=== PATIENT | male | born 2005 | race Caucasian/White ===

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

== ENCOUNTER 2023-05-31 15:55 | Emergency (ER) | payer BC, SELFPAY ==
--- NOTE | ~2023-05-31 | XR_ITS ---
EXAMINATION: XR CHEST CLINICAL INFORMATION: Fall while skiing, pain with inspiration COMPARISON: None available. TECHNIQUE: 2 views of the chest were obtained. FINDINGS: No significant abnormality is noted involving the heart, lungs, mediastinum or soft tissues. S-shaped thoracolumbar scoliosis is noted. XR/XR chest 2V IMPRESSION: No acute cardiopulmonary disease.
--- NOTE | ~2023-05-31 | XR_ITS ---
EXAMINATION: XR THORACIC SPINE CLINICAL INFORMATION: Fall COMPARISON: None available. TECHNIQUE: 3 views of the thoracic spine were obtained. FINDINGS: There is a thoracolumbar scoliosis convex to the right with apex at T5-T6 and convex to the left with apex at T11-T12. Bone alignment is otherwise normal. No fracture or dislocation. Disc spaces. Normal paraspinal soft tissues. XR/XR thoracic spine 3V IMPRESSION: Thoracolumbar scoliosis. No fracture seen.
--- NOTE | ~2023-05-31 | CT_ITS ---
EXAMINATION: CT HEAD WITHOUT CONTRAST, CT CERVICAL SPINE WITHOUT CONTRAST CLINICAL INFORMATION: Fall. Loss of consciousness. Midline neck tenderness COMPARISON: None. TECHNIQUE: Multidetector CT examination of the head is performed without contrast. Multidetector CT of the cervical spine without contrast. Multiplanar postprocessing This CT examination was performed using dose optimization techniques as appropriate, variously including the following: *Automated exposure control *Adjustment of mA and/or kV according to patient size (this includes techniques or standardized protocols for targeted exams where dose is matched to indication/reason for exam; i.e. extremities or head) *Use of iterative reconstruction technique DLP: 983 mGy-cm FINDINGS: Head CT: There is no evidence of a recent intracranial hemorrhage or extra-axial collection. The midline structures are nondisplaced. The ventricles, cisterns, and sulci are within normal limits. There is no evidence of an intra-axial mass. There are no suspicious focal areas of abnormal brain attenuation. The carlos-white interface is within normal limits. There is no evidence of acute territorial infarct. The paranasal sinuses and mastoids are within normal limits. No fracture or fluid level demonstrated Cervical CT: No fracture or subluxation. There is some straightening of the expected cervical lordosis. No focal lesion or loss of volume. No significant disc narrowing No suspicious abnormality in the visualized apex of the chest CT/CT head/brain wo IV con IMPRESSION: 1. There is no evidence of a recent intracranial hemorrhage. 2. No acute infarct. 3. No acute fracture or subluxation of the cervical spine
--- NOTE | ~2023-05-31 | CT_ITS ---
EXAMINATION: CT HEAD WITHOUT CONTRAST, CT CERVICAL SPINE WITHOUT CONTRAST CLINICAL INFORMATION: Fall. Loss of consciousness. Midline neck tenderness COMPARISON: None. TECHNIQUE: Multidetector CT examination of the head is performed without contrast. Multidetector CT of the cervical spine without contrast. Multiplanar postprocessing This CT examination was performed using dose optimization techniques as appropriate, variously including the following: *Automated exposure control *Adjustment of mA and/or kV according to patient size (this includes techniques or standardized protocols for targeted exams where dose is matched to indication/reason for exam; i.e. extremities or head) *Use of iterative reconstruction technique DLP: 983 mGy-cm FINDINGS: Head CT: There is no evidence of a recent intracranial hemorrhage or extra-axial collection. The midline structures are nondisplaced. The ventricles, cisterns, and sulci are within normal limits. There is no evidence of an intra-axial mass. There are no suspicious focal areas of abnormal brain attenuation. The carlos-white interface is within normal limits. There is no evidence of acute territorial infarct. The paranasal sinuses and mastoids are within normal limits. No fracture or fluid level demonstrated Cervical CT: No fracture or subluxation. There is some straightening of the expected cervical lordosis. No focal lesion or loss of volume. No significant disc narrowing No suspicious abnormality in the visualized apex of the chest CT/CT cervical spine wo IV con IMPRESSION: 1. There is no evidence of a recent intracranial hemorrhage. 2. No acute infarct. 3. No acute fracture or subluxation of the cervical spine
[2023-05-31 16:01] VITALS: BP 130/71; PULSE 70; RESP 16; TEMP 36.1; O2SAT 97; BMI 22.1
--- NOTE | 2023-05-31 16:01 | ED.GENADULT ---
HPI - General Adult General Chief complaint: Fall Stated complaint: loss conscience diff breathing Time Seen by Provider: 05/31/23 19:02 Source: patient and family (mother) Mode of arrival: ambulatory Limitations: no limitations History of Present Illness HPI narrative: Patient is a 17-year-old male presenting to the ED with complaint of neck and upper back pain as well as pain with inspiration after a fall with loss of consciousness while skiing around 11am today. Does not recall how fall occurred, was helmeted. Believes he hit a jump and fell during the landing. Patient states he unsure length of LOC but feels it was just a few seconds. States he was awake by the time his friend who was skiing behind him arrived at his side. States he was able to ski down the rest of the trail to the bottom. Denies headache, blurred vision, double vision or other vision changes, nausea or vomiting. MD complaint: fall, loss of consciousness Onset (ago): hour(s) Location: neck and back Radiation: non-radiation Severity: moderate Quality: aching Pain Consistency: colicky Relieving factors: none Exacerbating factors: movement Associated symptoms: denies other symptoms Treatments prior to arrival: none Related Data Previous Rx's Medication Instructions Recorded azithromycin 250 mg tablet See Rx Instructions PO .COMPLEX #6 02/01/22 tabs cyclobenzaprine 5 mg tablet 5 mg PO TID PRN muscle spasm #10 05/31/23 tabs lidocaine 5 % topical patch 1 patch topical DAILY #15 ea 05/31/23 Allergies Allergy/AdvReac Type Severity Reaction Status Date / Time No Known Allergies Allergy Verified 02/01/22 08:40 [No Known Allergies*] Review of Systems Review of Systems: As per HPI. Yes all other systems are reviewed and are negative Constitutional: Constitutional: Reports as per HPI [facility] [place] Social History Social History Patient Tobacco Use Status: Never used Tobacco Current occupational status: employed and student Current occupation: rt hand /server systems administrator Physical Exam ED Vital Signs: Vital Signs - 24 hr 05/31/23 16:01 05/31/23 19:55 Temperature 96.9 F 97.7 F Pulse Rate 70 65 Respiratory Rate 16 18 Blood Pressure 130/71 124/43 L Pulse Oximetry 97 98 Oxygen Delivery Method Room Air Room Air BMI result Body Mass Index 22.1 Vital signs have been reviewed and appear to be correct. Blood pressure normal. Heart rate normal. Respiratory rate normal. Temperature normal. Oxygen saturation normal. Const General: cooperative, healthy appearing and no acute distress Orientation/consciousness: oriented to person, oriented to place, oriented to time and patient oriented x3 Limitations: no limitations [facility] Head: Yes normocephalic and Yes atraumatic Ears: external ears normal General nose exam: Normal external nose present Face and sinus: Yes face symmetric Mouth: oropharynx normal and moist mucous membranes Throat: Yes uvula midline Eyes Pupils: Equal, round and reactive pupils present Neck Neck: Yes normal visual inspection, Yes no meningeal signs and Yes supple Resp Effort & Inspection: normal respiratory effort and able to speak in complete sentences Auscultation: clear to auscultation bilaterally Cardio Rate: regular rate Rhythm: regular rhythm Heart sounds: S1 normal heart sound present and S2 normal heart sound present GI Palpation (GI): Soft to palpation and nontender Auscultation: normoactive bowel sounds General: Yes no CVA tenderness Back/Spine/Pelvis Back: no CVA tenderness Cervical Spine: normal cervical lordosis, cervical ROM normal, cervical muscular tenderness (bilateral ), No Cervical spine tenderness and No step off deformity Thoracic/Lumbar Spine: thoracic and lumbar spine normal to inspection, thoraco-lumbar ROM normal, straight leg raise negative bilaterally, pain with thoraco-lumbar ROM, paraspinal muscle tenderness bilaterally in the upper thoracic and in the mid thoracic, thoracic spinal tenderness at T4 and at T5 and No lumbar spinal tenderness Pelvis: no pain with anterior-posterior compression and no pain with lateral compression Skin General skin exam: elasticity normal and turgor normal Neuro General: oriented to person, oriented to place, oriented to time, patient oriented x3, gait normal, tone normal, moves all extremities, Normal light touch and pain sensation, no meningeal signs, no focal motor deficits, CN's II-XI intact bilaterally and deep tendon reflexes 2+ bilaterally Cranial nerves: Yes Equal, round and reactive pupils present Cognition (Neuro): normal cognition Motor exam (neuro): 5/5 motor strength present throughout, Pronator motor function not present, Normal motor muscle tone present throughout and Motor abnormalities not present Sensory Exam: Normal double simultaneous stimulation for sensation Extrem General: Yes full ROM, Yes no pedal edema and Yes no calf tenderness Psych Mental Status: mental status grossly normal Affect: normal affect Thought process: Normal thought process present Medical Decision Making Medical Decision Making MDM Narrative: Patient is a 17-year-old male presenting to the ED with complaint of neck and upper back pain as well as pain with inspiration after a fall with loss of consciousness while skiing around 11am today. On exam patient is awake, A+Ox3, VS WNL, afebrile, normal neurological exam without focal deficits, physical exam findings as above. Given reported symptoms and physical exam findings, initial differential includes ICH, skull fracture, cervical or thoracic vertebral fracture, subluxation, rib fracture, pneumothorax, muscle strain, contusion, concussion. X-ray/CT notable for No ICH, skull fracture, cervical or thoracic vertebral fracture or subluxation, no pneumothorax. My interpretation is in agreement with the radiologist's interpretation. All results discussed with patient and mother. Patient lives with mother and she reports that she will be able to observe patient for any changes. Strict return precautions discussed with patient and mother. Instructed patient to follow up with PCP. Patient and mother verbalized understanding of and agreement with plan. Differential Diagnosis Differential Diagnoses: The differential diagnosis associated with the presentation includes As per MDM. Admission/Observation Consideration of admission/observation: Escalation of care including admission/observation considered Independent Interpretation I performed an independent interpretation of an: Plain X-Ray and CT Scan Interpretation: No ICH, skull fracture, cervical or thoracic vertebral fracture or subluxation, no pneumothorax Radiology Impression Discussion of test interpretation with radiology: I have reviewed the radiologist's reading. Radiologist Impression: Head CT: There is no evidence of a recent intracranial hemorrhage or extra-axial collection. The midline structures are nondisplaced. The ventricles, cisterns, and sulci are within normal limits. There is no evidence of an intra-axial mass. There are no suspicious focal areas of abnormal brain attenuation. The carlos-white interface is within normal limits. There is no evidence of acute territorial infarct. The paranasal sinuses and mastoids are within normal limits. No fracture or fluid level demonstrated Cervical CT: No fracture or subluxation. There is some straightening of the expected cervical lordosis. No focal lesion or loss of volume. No significant disc narrowing No suspicious abnormality in the visualized apex of the chest CT/CT head/brain wo IV con IMPRESSION: 1. There is no evidence of a recent intracranial hemorrhage. 2. No acute infarct. 3. No acute fracture or subluxation of the cervical spine FINDINGS: No significant abnormality is noted involving the heart, lungs, mediastinum or soft tissues. S-shaped thoracolumbar scoliosis is noted. XR/XR chest 2V IMPRESSION: No acute cardiopulmonary disease. FINDINGS: There is a thoracolumbar scoliosis convex to the right with apex at T5-T6 and convex to the left with apex at T11-T12. Bone alignment is otherwise normal. No fracture or dislocation. Disc spaces. Normal paraspinal soft tissues. XR/XR thoracic spine 3V IMPRESSION: Thoracolumbar scoliosis. No fracture seen. Independent Historian Clinical information obtained from an independent historian. History obtained from or confirmed by: Parent (mother) External Record Review External record reviewed: Inpatient record, Office record and Outpatient record Prescription Management I considered prescription management with: Pain Medication and Other Discharge Plan Discharge Clinical Impression: Head injury, acute, with loss of consciousness, Cervical muscle strain, Muscle strain of upper back Patient Disposition: Home, Self-Care Instructions: Concussion (ED), Sports Concussion (ED) Additional Instructions: You have been evaluated in the emergency department today for head injury. Your CT scan did not show signs of bleed or fractures in your head. We recommend you take 600 mg ibuprofen every 6 hours or Tylenol 650 mg every 6 hours as needed for pain. If needed, you can alternate these medications so that you take 1 medication every 3 hours. For instance, at noon take ibuprofen, then at 3:00 p.m. take Tylenol, then at 6:00 p.m. take ibuprofen. You are being prescribed a muscle relaxer which you can take every 8 hours as needed for muscle spasms. You are being prescribed topical lidocaine patches which you can apply for up to 12 hours in a 24 hour period. Do not apply heat directly over the patches. Please schedule an appointment with for follow-up with your primary care provider as soon as possible. Return to the emergency department if you experience worsening or uncontrolled pain/headaches, especially sudden onset headache or worst headache of your life, vision changes, recurrent vomiting, difficulty with normal activities, abnormal behavior, difficulty walking, excessive drowsiness, new numbness, weakness, tingling or any other concerning symptoms. Prescriptions: New cyclobenzaprine 5 mg tablet 5 mg PO TID PRN (Reason: muscle spasm) Qty: 10 0RF lidocaine 5 % adhesive patch,medicated 1 patch topical DAILY Qty: 15 0RF Rx Instructions: leave on most painful area for up to 12 hrs No Action azithromycin 250 mg tablet See Rx Instructions PO .COMPLEX Qty: 6 0RF Rx Instructions: take 500 mg today (day 1), then 250 mg for 4 days (days 2-5) PO
[2023-05-31 19:55] VITALS: BP 124/43; PULSE 65; RESP 18; TEMP 36.5; O2SAT 98
== END 2023-05-31 20:19 | disposition home or self-care (01) ==
LOC: HO.ED 20:15
PROVIDERS: Emergency Provider Emergency Medicine Emergency Medical Services; PCP Pediatrics
DX: S06.0XAA Concussion with loss of consciousness status unknown, initial encounter (principal); S16.1XXA Strain of muscle, fascia and tendon at neck level, initial encounter; S29.012A Strain of muscle and tendon of back wall of thorax, initial encounter; W17.81XA Fall down embankment (hill), initial encounter; Y93.23 Activity, snow (alpine) (downhill) skiing, snowboarding, sledding, tobogganing and snow tubing; Y92.828 Other wilderness area as the place of occurrence of the external cause; Y99.9 Unspecified external cause status
CPT/HCPCS: 70450; 71046; 72072; 72125; 99282; 99284